=== PATIENT | male | born 1950 | race Caucasian/White ===

== ENCOUNTER 2023-01-22 13:51 | Outpatient (RCR) | payer MEDICARE, BC, SELFPAY ==
--- NOTE | 2023-01-24 12:50 | PT.OPE ---
PT [place] [facility] PT [facility] Eval Start: 01/22/23 14:59 Freq: Status: Active Protocol: Document 01/22/23 14:59 LALITHA (Rec: 01/22/23 15:02 LALITHA [id number]) E-signed By Kvng Cantu DPT, MS Physical Therapy Outpatient Evaluation Insurance Information Recert Due Date 04/22/23 Insurance Name Medicare B Medical Diagnosis Unspecified fracture of unspecified patella, initial encounter for closed fracture. Treating Diagnosis R LE weakness and decreased R LE flexibility Subjective Subjective Pt presents to PT following R non-displaced patellar fx in early December. He fell directly onto his R knee while playing softball with mild soreness initially. Able to play softball for 2 more weeks but experienced high levels of R knee pain, swelling and bruising distal to his knee. Initially no radiographs but non-displaced incomplete vertical patellar fx found when he returned to see his MD . Used a knee immobilizer until 01/20/23 with minimal tightness the past few days. Evidence of healing with radiographs and no precautions per Dr. Thomas. No issues with stairs to his basement in his condo. Exercises 3-4x per week on the elliptical for 30 min at the [facility] prior to his injury. Chief complaint R LE weakness and fatigue with extended walking. Leaves for a 2-week trip to the [facility] in 2- weeks. PMH includes HTN and previous R meniscus tear. Aggravating activities: extended walking and standing. ALLEV factors: movement. Pain Comments 0-1/10 Current Work Status Retired Preferred Name Al Precautions Weight Bearing Status Weight Bear as Tolerated Therapy Limitations/Systems Review Not Limited Assessment Assessment/Impression Pt doing very well 7-weeks post-injury with no pain with all daily activities, a stable gait pattern and good R LE NM activation. R LE weakness found with testing with symmetrical B knee ROM. Good response to trial of elliptical, light weight machine and LE strengthening exercises. He will benefit from continued skilled PT intervention to address R LE weakness. 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 Patient will be independent and compliant in HEP 2. Pt will display improved R quad, hamstring, hip ABD, hip ext strength of 5/5 to return to performing all daily activities without sxs. 3. Pt will be able to walk and use the elliptical for >20 min with no elevation in R knee pain to maintain cardiovascular health 4. Patient will report >75% improvement in LEFS questionnaire to significantly improve trevor to daily and work activities. Coordination/Communication With Referral Source Treatment Plan/Direct Interventions Therapeutic Exercises Frequency/Duration 1x per week for 4-8 visits Patient Will Be Discharged From Therapy Completion of LTG(s),Skills Plateau,Independent w/HEP, Independently Progressing Evaluation Billing Untimed Code Treatment Minutes 24 Complexity Moderate Certification Information Initial Certification Date 01/22/23 Ending Certification Date 04/22/23 Provider Signature Shows Agreement With POC & Medical Necessity Physician Signature & Date Requested Please Sign/Date Here Physician Comment/Change : Physician NPI Number #
== END 2023-05-22 23:59 | disposition home or self-care (01) ==
PROVIDERS: Visit Provider Orthopaedic Surgery
DX: S82.009A Unspecified fracture of unspecified patella, initial encounter for closed fracture (principal); R53.1 Weakness; R29.898 Other symptoms and signs involving the musculoskeletal system; Z51.89 Encounter for other specified aftercare
CPT/HCPCS: 97110; 97162